=== PATIENT | male | born 1995 ===

== ENCOUNTER 2023-07-20 14:25 | Emergency (ER) | payer SELFPAY ==
[2023-07-20] MEDS ORDERED: Ketorolac Tromethamine 30 MG (1 mL) VIAL ONE (17:21)
[2023-07-20 18:25] LABS: Influenza A by NAA Not Detected (NotDetected); Influenza B by NAA Not Detected (NotDetected); SARS-CoV-2 NAA Rapid Test Not Detected (NotDetected)
== END 2023-07-20 18:13 | disposition home or self-care (01) ==
LOC: ERS 14:25
DX: J02.9 Acute pharyngitis, unspecified (principal); F17.210 Nicotine dependence, cigarettes, uncomplicated
CPT/HCPCS: 87081; 87430; 96372; 99282; J1885